=== PATIENT | female | born 1940 | race Caucasian/White ===

== ENCOUNTER 2019-01-07 09:15 | Emergency (ER) | payer MEDICARE ==
[~2019-01-07] VITALS: Ht 162.6 cm; Wt 72.0 kg
[2019-01-07 09:22] VITALS: BP 126/88
[2019-01-07] MEDS ORDERED: TRAM50TA2 PO (10:55)
== END 2019-01-07 11:10 | disposition home or self-care (01) ==
LOC: ER 09:16
DX: S32.018A Other fracture of first lumbar vertebra, initial encounter for closed fracture (principal); F03.90 Unspecified dementia, unspecified severity, without behavioral disturbance, psychotic disturbance, mood disturbance, and anxiety; Z79.899 Other long term (current) drug therapy; W18.39XA Other fall on same level, initial encounter; Y93.89 Activity, other specified; Y92.89 Other specified places as the place of occurrence of the external cause; Y99.8 Other external cause status
CPT/HCPCS: 72100; 99284

== ENCOUNTER 2019-06-17 10:11 | Emergency (ER) | payer MEDICARE ==
[~2019-06-17] VITALS: Ht 162.6 cm; Wt 68.2 kg
[~2019-06-17 10:11] MED LIST: HYDR-4383 PO
[2019-06-17] MEDS ORDERED: ketorolac trometh inj. 60 MG/2 ML VIAL IM ONE (10:35)
[2019-06-17] MEDS ORDERED: ACET-3067 PO (11:31)
[2019-06-17 11:37] VITALS: BP 128/60
== END 2019-06-17 11:45 | disposition home or self-care (01) ==
LOC: ER 10:12
DX: M25.551 Pain in right hip (principal); F03.90 Unspecified dementia, unspecified severity, without behavioral disturbance, psychotic disturbance, mood disturbance, and anxiety; G20 Parkinson's disease; Z79.899 Other long term (current) drug therapy
CPT/HCPCS: 73502; 96372; 99284; J1885

== ENCOUNTER 2019-07-24 05:38 | Inpatient (IN) | payer MEDICARE ==
[2019-07-17 16:59] LABS: BASOPHILS % (AUTO) 0.7 % (0-1); EOSINOPHILS # (AUTO) 0.1 X10'3 (0-0.9); EOSINOPHILS % (AUTO) 1.3 % (0-6); LYMPHOCYTES # (AUTO) 1.6 X10'3 (1.1-4.8); LYMPHOCYTES % (AUTO) 27.2 % (21-51); MEAN CORPUSCULAR HEMOGLOBIN 32.2 PG (27.0-31.0); MEAN CORPUSCULAR HGB CONC 34.7 g/dL (33.0-36.5); MEAN CORPUSCULAR VOLUME 92.7 FL (78-98); MEAN PLATELET VOLUME 7.3 FL (7.4-10.4); MONOCYTES # (AUTO) 0.6 X10'3 (0-0.9); MONOCYTES % (AUTO) 9.5 % (2-12); NEUTROPHILS # (AUTO) 3.7 X10'3 (1.8-7.7); NEUTROPHILS % (AUTO) 61.3 % (42-75); PRE OP HEMATOCRIT 37.8 % (35.0-45.0); PRE OP HEMOGLOBIN 13.1 g/dL (12.0-16.0); PRE OP PLATELET COUNT 279 X10'3 (140-440); RED BLOOD COUNT 4.08 X10'6 (4.20-5.60)
[2019-07-17 17:08] LABS: PRE OP PROTIME 10.2 SECONDS (9.0-12.0)
[2019-07-17 17:10] LABS: ALBUMIN 3.7 G/DL (3.4-5.0); ALBUMIN/GLOBULIN RATIO 1.1 (1.1-1.5); ALKALINE PHOSPHATASE 69 IU/L (46-116); BLOOD UREA NITROGEN 20 MG/DL (7-18); BUN/CREATININE RATIO 29.4 (6.6-38.0); CALCIUM 9.2 MG/DL (8.5-10.1); CHLORIDE 105 MMOL/L (99-107); CREATININE 0.68 MG/DL (0.40-0.90); PRE OP ALT 16 U/L (30-65); PRE OP ANION GAP 6 (8-16); PRE OP AST 15 U/L (10-37); PRE OP BILIRUB, TOTAL 0.4 MG/DL (0.0-1.0); PRE OP GLUCOSE 100 MG/DL (70-104); PRE OP POTASSIUM 3.9 MMOL/L (3.4-5.1); PRE OP SODIUM 141 MMOL/L (135-145); TOTAL PROTEIN 7.1 G/DL (6.4-8.2); eGFR 83 ML/MIN
[~2019-07-24] VITALS: Ht 161.9 cm; Wt 74.7 kg
[2019-07-24] VITALS (30 sets, daily range): BP systolic 90–136; BP diastolic 42–71
[~2019-07-24 05:38] MED LIST changes: +ATEN-169 PO; +ATOR40TA7 PO; +CARB-87 PO; +CART1TAB4 PO; +CELE50CA PO; +DOCUMENT DATE & TIME OF BETA-BLOCKER PO ONE; +ESTR42.53 VG; -HYDR-4383 PO; +VANCOMYCIN INJ 1000 MG in NORMAL SALINE 250ml IV.SOLN IV ONE; +[UNRECOGNIZED DRUG - REMARK]; +acetaminophen 325mg tablet PO ONE; +cefazolin/dext.iso 2gm/50ml 50 ML IV ONE; +celeCOXIB 100mg capsule PO ONE; +famotidine 20mg tablet PO ONE; +gabapentin 300mg capsule PO ONE; +oxyCODONE SR 10mg (sust. release) tab -2 tabs (20mg) PO ONE; +oxyCODONE SR 10mg (sust. release) tab PO ONE; +ringers solution, lacted 1,000 ML IV SCH; +tranexamic acid inj. 1,000 MG in normal saline 100 ML IV ONE; +vancomycin inj 1,500 MG in normal saline 300ml IV soln IV ONE
[2019-07-24] MEDS ORDERED: atenolol 25mg tablet PO ONE ×2 (06:35→06:45)
[2019-07-24] MEDS ORDERED: ketorolac trometh. 30mg/ml inj. ONE (08:12)
[2019-07-24] MEDS ORDERED: cloNIDine hcl/PF 100mcg/ml inj ONE (08:13)
[2019-07-24] MEDS ORDERED: ROPIVAcaine 0.5% (5mg/ml) 30ml vial ONE (08:13)
[2019-07-24] MEDS ORDERED: epiNEPHrine 1 mg/ml inj ONE (08:13)
[2019-07-24] MEDS ORDERED: tetracaine 1% (10mg/ml) pres. free inj. ONE (08:13)
[2019-07-24] MEDS ORDERED: MIDAZolam 1mg/ml 10ml vial ONE (08:16)
[2019-07-24] MEDS ORDERED: fentaNYL/PF 50MCG/1 ML 2ML syringe ONE (08:16)
[2019-07-24] MEDS ORDERED: vancomycin 1,000mg inj ONE (09:21)
--- NOTE | 2019-07-24 09:50 | NUR ---
Received from OR via BED, accompanied by Anesthesiologist DR HAILE and report given by Anesthesiologist. PT DROWSY, DENIES PAIN, RIGHT HIP W/DRSG CDI, LEG BRACE ON, COSMO DRAIN W/GREEN LIGHT ILLUMINATION, CHIN CATHETER TO GRAVITY DRAINAGE W/YELLOW URINE IN DRAINAGE BAG, BLANKET WARMER PLACED ON PT FOR TEMP OF 35.5. Addendum: 07/24/19 at 1022 by Chani Shirley RN Amended: Links added.
[2019-07-24] MEDS ORDERED: ringers solution, lacted 1,000 ML IV SCH (09:52)
[2019-07-24] MEDS ORDERED: ondansetron/PF 4mg/2ml inj IV PRN ×2 (09:55→12:35)
[2019-07-24] MEDS ORDERED: morphine 4 MG/ML inj SYRINge IV PRN ×2 (09:55)
[2019-07-24] MEDS ORDERED: meperidine/PF 25mg/ml syringe IV PRN ×3 (09:55)
[2019-07-24] MEDS ORDERED: proCHLORperazine 10 MG/2 ml inj IV PRN (09:55)
[2019-07-24] MEDS ORDERED: diphenhydrAMINE 25mg capsule PO PRN ×2 (12:35)
[2019-07-24] MEDS ORDERED: bisacodyl 10mg suppository rectal RC PRN (12:35)
[2019-07-24] MEDS ORDERED: HYDROmorphone 1 mg/ml syringe IV PRN (12:35)
[2019-07-24] MEDS ORDERED: HYDROmorphone inj. 0.5 MG/0.5 ML DISP.SYRIN IV PRN (12:35)
[2019-07-24] MEDS ORDERED: HYDROcodone/acetaminophen 10/325mg tab PO PRN (12:35)
[2019-07-24] MEDS ORDERED: magnesium hydroxide 30ml (MOM) UD suspension PO PRN (12:35)
--- NOTE | 2019-07-24 13:00 | NUR ---
Report called to receiving nurse, NOTIFIED OF PTS ARRIVAL TO FLOOR, Transferred via BED BY ORDERLYS, 1 BAG OF PERSONAL Belongings SENT W/PT TO ROOM 4020A, FAMILY NOTIFIED OF PTS TRANSFER. Special Issues communicated to receiving nurse. YES. Addendum: 07/24/19 at 1307 by Chani Shirley RN Amended: Links added.
[2019-07-24] MEDS: potassium cl 20mEq in 1/2 NS 1,000 ML IV SCH ×2 (13:23→23:27)
[2019-07-24] MEDS: atorvastatin 20mg tablet PO SCH (13:27)
[2019-07-24] MEDS: HYDROcodone/acetaminophen 10/325mg tab PO PRN (15:40)
[2019-07-24] MEDS: ceFAZolin 1GM/D5W- ADD-VANTAGE 50 ML IV SCH ×2 (16:01→23:27)
[2019-07-24] MEDS ORDERED: tranexamic acid inj. 1,000 MG in normal saline 100ml IV soln 100 ML IV ONE (16:30)
[2019-07-24] MEDS: carbidoba-levodopa 25-100mg tablet PO SCH ×2 (17:42→20:32)
--- NOTE | 2019-07-24 17:50 | NUR ---
Pt returned from surgery at 1300 today. Recovered well. Mostly non verbal or whisper type "Yes" or "No" to most questions. Spoke to pts son immediately following surgery (Branden) and was informed that the pt has been mostly bedbound over the past month, and unable to ambulate due to pain in her right hip. Branden reports pt has declined over the past year, and has "short term memory, or confusion most of the time." Pt lives with her son Branden [phone], or his Viola . Per Branden he thinks it will be best for pt to go to Rehab post recovery as pt has been in bed so long, and not able to care for self or ambulate. At approximately 1750, pt had her right leg over the side of the bed, and was attempting to get oob without assistance. Immediately responded to pt and provided education that pt had surgery today and will not be getting OOB today. Pt repositioned in bed with heels floated. Pt asked "Where am I and asked if I was coming to dinner at her house." Attempted to reorient patient without results. Branden and Viola came in to visit at this time. Pt continues to be confused as to event, location and time. Report given to BRIANA Dumont who will continue to monitor tonight.
--- NOTE | 2019-07-24 18:10 | NUR ---
Received report from BRIANA Carpio. Assumed patient care.
--- NOTE | 2019-07-24 18:33 | NUR ---
Problems reprioritized. Patient report given, questions answered & plan of care reviewed with BRIANA Dumont.
[2019-07-24] MEDS: atenolol 25mg tablet PO SCH (19:35)
[2019-07-24] MEDS: ascorbic acid 500mg tablet PO SCH (19:36)
[2019-07-24] MEDS ORDERED: vancomycin/NS 1 GM ADD-VANTAGE 250 ML IV SCH (20:00)
[2019-07-24] MEDS: sennosides 8.6mg tablet PO SCH (20:31)
[2019-07-24] MEDS: gabapentin 300mg capsule PO SCH (20:31)
[2019-07-25] VITALS (7 sets, daily range): BP systolic 106–148; BP diastolic 49–71
[2019-07-25] MEDS: HYDROcodone/acetaminophen 10/325mg tab PO PRN ×3 (03:44→17:26)
[2019-07-25 05:16] LABS: BASOPHILS % (AUTO) 0.3 % (0-1); EOSINOPHILS % (AUTO) 0.6 % (0-6); HEMATOCRIT 33.7 % (35.0-45.0); HEMOGLOBIN 11.8 g/dl (12.0-16.0); LYMPHOCYTES # (AUTO) 1.1 X10'3 (1.1-4.8); LYMPHOCYTES % (AUTO) 13.7 % (21-51); MEAN CORPUSCULAR HEMOGLOBIN 32.5 PG (27.0-31.0); MEAN CORPUSCULAR VOLUME 92.8 FL (78-98); MEAN PLATELET VOLUME 7.1 FL (7.4-10.4); MONOCYTES # (AUTO) 0.9 X10'3 (0-0.9); MONOCYTES % (AUTO) 11.1 % (2-12); NEUTROPHILS # (AUTO) 6.2 X10'3 (1.8-7.7); NEUTROPHILS % (AUTO) 74.3 % (42-75); PLATELET COUNT 250 X10'3 (140-440); RED BLOOD COUNT 3.63 X10'6 (4.20-5.60); RED CELL DISTRIBUTION WIDTH 13.6 % (11.5-14.5); WHITE BLOOD COUNT 8.4 X10'3 (4.5-11.0)
[2019-07-25 05:30] LABS: ANION GAP 6 (8-16); CHLORIDE 105 MMOL/L (99-107); POTASSIUM 4.2 MMOL/L (3.5-5.1); SODIUM 139 MMOL/L (135-145); TOTAL CARBON DIOXIDE 27.7 MMOL/L (24-32)
[2019-07-25] MEDS: atorvastatin 20mg tablet PO SCH (08:09)
[2019-07-25] MEDS: gabapentin 300mg capsule PO SCH ×3 (08:09→20:39)
[2019-07-25] MEDS: multivitamins, therapeutics tablet PO SCH (08:10)
[2019-07-25] MEDS: atenolol 25mg tablet PO SCH ×2 (08:10→20:40)
[2019-07-25] MEDS: ascorbic acid 500mg tablet PO SCH ×2 (08:10→20:40)
[2019-07-25] MEDS: aspirin 325mg tablet PO SCH (08:10)
[2019-07-25] MEDS: carbidoba-levodopa 25-100mg tablet PO SCH ×4 (08:10→20:40)
--- NOTE | 2019-07-25 08:15 | NUR ---
Student Medication Administration: For this medication-pass time frame, all medication were reviewed, dispensed, administered and documented per hospital policy by SN Re[facility].
[2019-07-25] MEDS: potassium cl 20mEq in 1/2 NS 1,000 ML IV SCH ×3 (09:31→17:27)
--- NOTE | 2019-07-25 12:13 | NUR ---
Student documentation: I have reviewed and agree with all interventions, assessments performed and documented by SN [facility].
--- NOTE | 2019-07-25 18:35 | NUR ---
Problems reprioritized. Patient report given, questions answered & plan of care reviewed with Breanna Gresham RN.
[2019-07-25] MEDS: sennosides 8.6mg tablet PO SCH (20:40)
[2019-07-26] MEDS: potassium cl 20mEq in 1/2 NS 1,000 ML IV SCH (04:32)
[2019-07-26] MEDS: HYDROcodone/acetaminophen 10/325mg tab PO PRN ×2 (05:35→21:11)
[2019-07-26 06:00] VITALS: BP 128/61
[2019-07-26 06:15] LABS: BASOPHILS % (AUTO) 0.3 % (0-1); EOSINOPHILS # (AUTO) 0.1 X10'3 (0-0.9); EOSINOPHILS % (AUTO) 0.7 % (0-6); HEMATOCRIT 33.5 % (35.0-45.0); HEMOGLOBIN 11.7 g/dl (12.0-16.0); LYMPHOCYTES # (AUTO) 1.3 X10'3 (1.1-4.8); LYMPHOCYTES % (AUTO) 12.3 % (21-51); MEAN CORPUSCULAR HEMOGLOBIN 32.3 PG (27.0-31.0); MEAN CORPUSCULAR HGB CONC 34.9 g/dL (33.0-36.5); MEAN CORPUSCULAR VOLUME 92.7 FL (78-98); MEAN PLATELET VOLUME 7.2 FL (7.4-10.4); MONOCYTES # (AUTO) 1.4 X10'3 (0-0.9); NEUTROPHILS % (AUTO) 73.7 % (42-75); PLATELET COUNT 242 X10'3 (140-440); RED BLOOD COUNT 3.61 X10'6 (4.20-5.60); RED CELL DISTRIBUTION WIDTH 13.9 % (11.5-14.5); WHITE BLOOD COUNT 10.8 X10'3 (4.5-11.0)
--- NOTE | 2019-07-26 06:15 | NUR ---
Problems reprioritized. Patient report given, questions answered & plan of care reviewed with Carlos RN.
--- NOTE | 2019-07-26 06:39 | NUR ---
Patient in room ORTHO 4020. I have received report from Breanna Gresham RN and had the opportunity to ask questions and assume patient care.
[2019-07-26] MEDS: ascorbic acid 500mg tablet PO SCH ×2 (08:24→19:37)
[2019-07-26] MEDS: aspirin 325mg tablet PO SCH (08:24)
[2019-07-26] MEDS: gabapentin 300mg capsule PO SCH ×3 (08:24→19:37)
[2019-07-26] MEDS: atorvastatin 20mg tablet PO SCH (08:24)
[2019-07-26] MEDS: multivitamins, therapeutics tablet PO SCH (08:24)
[2019-07-26] MEDS: carbidoba-levodopa 25-100mg tablet PO SCH ×4 (08:25→19:37)
[2019-07-26] MEDS: atenolol 25mg tablet PO SCH ×2 (08:25→19:37)
[2019-07-26 09:53] VITALS: BP 124/66
--- NOTE | 2019-07-26 14:36 | NUR ---
Joint replacement consult: Pt currently AOx1 s/p R hip surgery. PO 50% avg meals decent given age. LBM 07/23. Pt not appropriate for high protein ed at this time. Ensure high protein BIDBD added to meals for additional protein needs; MD notified. Pending MD verification prior to sending on trays. Will continue to monitor. Rec: 1. continue regular diet 2. ensure high protein BIDBD; pending MD verification prior to sending on trays 3. routine bowel care 4. MVI for wound healing 5. weekly wts Addendum: 07/26/19 at [address] Amended: Links added.
[2019-07-26] MEDS: acetaminophen 325mg tablet PO PRN (15:33)
--- NOTE | 2019-07-26 15:41 | NUR ---
Physical therapy ambulated patient and noticed bruising to upper Right posterior knee, possible deep tissue injury from breslo leg brace that is ordered for night time. Kimberly Farias NP was notified and Dr. Suarez will inspect it in the A.M. Phots taken and put in hard chart. The metal stays were taken out of the knee brace and is off at this time. Will continue to monitor.
[2019-07-26] MEDS ORDERED: lactose-reduced food (Ensure High Protein) 237ml bottle PO SCH (17:30)
[2019-07-26 18:00] VITALS: BP 140/74
--- NOTE | 2019-07-26 18:21 | NUR ---
Problems reprioritized. Patient report given, questions answered & plan of care reviewed with Breanna Gresham RN.
[2019-07-26] MEDS: sennosides 8.6mg tablet PO SCH (19:37)
[2019-07-26 22:00] VITALS: BP 156/69
[2019-07-27] MEDS: acetaminophen 325mg tablet PO PRN (05:10)
[2019-07-27 05:17] LABS: BASOPHILS % (AUTO) 0.5 % (0-1); EOSINOPHILS # (AUTO) 0.2 X10'3 (0-0.9); EOSINOPHILS % (AUTO) 2.2 % (0-6); HEMATOCRIT 32.8 % (35.0-45.0); HEMOGLOBIN 11.3 g/dl (12.0-16.0); LYMPHOCYTES # (AUTO) 0.9 X10'3 (1.1-4.8); LYMPHOCYTES % (AUTO) 10.4 % (21-51); MEAN CORPUSCULAR HEMOGLOBIN 32.2 PG (27.0-31.0); MEAN CORPUSCULAR HGB CONC 34.6 g/dL (33.0-36.5); MEAN CORPUSCULAR VOLUME 93.1 FL (78-98); MEAN PLATELET VOLUME 7.5 FL (7.4-10.4); MONOCYTES # (AUTO) 0.9 X10'3 (0-0.9); MONOCYTES % (AUTO) 10.3 % (2-12); NEUTROPHILS # (AUTO) 6.4 X10'3 (1.8-7.7); NEUTROPHILS % (AUTO) 76.6 % (42-75); PLATELET COUNT 244 X10'3 (140-440); RED BLOOD COUNT 3.52 X10'6 (4.20-5.60); RED CELL DISTRIBUTION WIDTH 13.7 % (11.5-14.5); WHITE BLOOD COUNT 8.3 X10'3 (4.5-11.0)
[2019-07-27 06:00] VITALS: BP 147/62
--- NOTE | 2019-07-27 06:12 | NUR ---
Problems reprioritized. Patient report given, questions answered & plan of care reviewed with BRIANA Wallace.
--- NOTE | 2019-07-27 06:36 | NUR ---
Patient in room ORTHO 4020. I have received report from BRIANA Carlos and had the opportunity to ask questions and assume patient care. Pt is awake. She is confused. In no apparent distress. Will continue to monitor.
[2019-07-27] MEDS: ascorbic acid 500mg tablet PO SCH (07:26)
[2019-07-27] MEDS: atenolol 25mg tablet PO SCH (07:26)
[2019-07-27] MEDS: atorvastatin 20mg tablet PO SCH (07:27)
[2019-07-27] MEDS: gabapentin 300mg capsule PO SCH (07:27)
[2019-07-27] MEDS: multivitamins, therapeutics tablet PO SCH (07:27)
[2019-07-27] MEDS: carbidoba-levodopa 25-100mg tablet PO SCH (07:27)
[2019-07-27 10:00] VITALS: BP 100/44
[2019-07-27] MEDS: aspirin 325mg tablet PO SCH (10:09)
--- NOTE | 2019-07-27 11:56 | NUR ---
Problems reprioritized. Patient report given, questions answered & plan of care reviewed with BRIANA Moe at [facility].
--- NOTE | 2019-07-27 12:40 | NUR ---
Pt discharged. No IV, report called to receiving facility, all belongings sent with pt. Pt taken by [facility] personnel via [facility].
== END 2019-07-27 12:40 | DRG 470 ==
LOC: PAS IN 05:38 → EDSTATUS 08:45 → ORTHO 4S 13:00
PROVIDERS: ADMIT Orthopaedic Surgery; ATTEND Orthopaedic Surgery
PROC: 0SR906A Replacement of Right Hip Joint with Oxidized Zirconium on Polyethylene Synthetic Substitute, Uncemented, Open Approach (ICD-10-PCS; principal; 2019-07-24 08:16)
DX: M16.11 Unilateral primary osteoarthritis, right hip (principal); D62 Acute posthemorrhagic anemia; E78.5 Hyperlipidemia, unspecified; E66.9 Obesity, unspecified; G89.29 Other chronic pain; G20 Parkinson's disease; I10 Essential (primary) hypertension; I25.10 Atherosclerotic heart disease of native coronary artery without angina pectoris; Z88.5 Allergy status to narcotic agent; Z79.899 Other long term (current) drug therapy; Z68.28 Body mass index [BMI] 28.0-28.9, adult
CPT/HCPCS: 36415; 71046; 72170; 80051; 80053; 82948; 85025; 85610; 85730; 86885; 86900; 86901; 87081; 97110; 97116; 97161; 97530; A4615; A7000; C1758; C1776; G0378; J0171; J0690; J0735; J1885; J2250; J2795; J3010; J3370; J3480; J7120